=== PATIENT | female | born 1990 | race Caucasian/White ===

== ENCOUNTER 2017-12-07 22:59 | Emergency (ER) | payer MEDICAID ==
[~2017-12-07] VITALS: Ht 154.9 cm; Wt 120.7 kg
[~2017-12-07 22:59] MED LIST: AMIT25TA10 PO; AZIT250T PO; AZIT250T82 PO; CYCL-1 PO; DICL50TA8 PO; DIPH1TAB PO; DOCU-28 PO; FLUT16SP2 BOTHNARES; FLUT16SP26 BOTHNARES; GABA-532 PO; GUAI120015 PO; IBUP-1985 PO; LIDO5CRE7 RC; LOPE2CAP PO; LORA10TA7 PO; METH-360 PO; METR500T PO; OLAN10TA3 PO; ONDA4TAB6 PO; OXCA300T4 PO; PROC5TAB56 PO; PROM25TA14 PO; TRAM50TA2 PO
[2017-12-08] MEDS ORDERED: HYDR-3965 PO (01:29)
[2017-12-08] MEDS ORDERED: IBUP-1984 PO (01:29)
[2017-12-08] MEDS ORDERED: ondansetron/PF 4mg/2ml inj IM ONE (01:30)
[2017-12-08] MEDS ORDERED: ketorolac trometh inj. 60 MG/2 ML VIAL IM ONE (01:30)
[2017-12-08] MEDS ORDERED: morphine 4 MG/ML inj SYRINge IM ONE (01:30)
[2017-12-08 02:05] VITALS: BP 127/68
== END 2017-12-08 02:07 | disposition home or self-care (01) ==
LOC: ER 23:01
DX: M54.30 Sciatica, unspecified side (principal); G89.29 Other chronic pain; G43.909 Migraine, unspecified, not intractable, without status migrainosus; E03.9 Hypothyroidism, unspecified; F12.10 Cannabis abuse, uncomplicated; Z88.8 Allergy status to other drugs, medicaments and biological substances; Z91.030 Bee allergy status; Z79.899 Other long term (current) drug therapy
CPT/HCPCS: 96372; 99284; J1885; J2270; J2405

== ENCOUNTER 2018-02-27 17:36 | Emergency (ER) | payer MEDICAID ==
[~2018-02-27] VITALS: Ht 160 cm; Wt 120.0 kg
[2018-02-27 17:59] LABS: BASOPHILS # (AUTO) 0.1 X10'3 (0-0.2); BASOPHILS % (AUTO) 0.5 % (0-1); EOSINOPHILS # (AUTO) 0.2 X10'3 (0-0.9); HEMATOCRIT 40.6 % (35.0-45.0); HEMOGLOBIN 13.9 g/dl (12.0-16.0); LYMPHOCYTES # (AUTO) 2.9 X10'3 (1.1-4.8); LYMPHOCYTES % (AUTO) 17.5 % (21-51); MEAN CORPUSCULAR HEMOGLOBIN 30.5 PG (27.0-31.0); MEAN CORPUSCULAR HGB CONC 34.1 % (33.0-36.5); MEAN CORPUSCULAR VOLUME 89.4 FL (78-98); MEAN PLATELET VOLUME 11.1 FL (7.4-10.4); MONOCYTES # (AUTO) 0.6 X10'3 (0-0.9); MONOCYTES % (AUTO) 3.7 % (2-12); NEUTROPHILS # (AUTO) 12.8 X10'3 (1.8-7.7); NEUTROPHILS % (AUTO) 77.3 % (42-75); PLATELET COUNT 259 X10'3 (140-440); RED BLOOD COUNT 4.54 X10'6 (4.20-5.60); RED CELL DISTRIBUTION WIDTH 13.9 % (11.5-14.5); WHITE BLOOD COUNT 16.6 X10'3 (4.5-11.0)
[2018-02-27 18:11] LABS: PARTIAL THROMBOPLASTIN TIME 30 SECONDS (22-32)
[2018-02-27 18:16] LABS: ALANINE AMINOTRANSFERASE 23 U/L (12-78); ALBUMIN 3.7 G/DL (3.4-5.0); ALBUMIN/GLOBULIN RATIO 0.9 (1.1-1.5); ALKALINE PHOSPHATASE 104 IU/L (46-116); ANION GAP 11 (8-16); ASPARTATE AMINO TRANSFERASE 9 U/L (10-37); BILIRUBIN,TOTAL 0.3 MG/DL (0.1-1.0); BLOOD UREA NITROGEN 14 MG/DL (7-18); BUN/CREATININE RATIO 15.6 (6.6-38.0); CALCIUM 9.1 MG/DL (8.5-10.1); CHLORIDE 103 MMOL/L (99-107); GLUCOSE 104 MG/DL (70-104); POTASSIUM 3.3 MMOL/L (3.5-5.1); SODIUM 139 MMOL/L (135-145); TOTAL PROTEIN 7.9 G/DL (6.4-8.2); eGFR 75 ML/MIN
[2018-02-27 18:39] LABS: LARGE PLATELETS FEW; PLATELET ESTIMATE NORMAL
[2018-02-27 21:14] LABS: URINE HCG NEGATIVE (NEG)
[2018-02-27 21:16] LABS: CLARITY,URINE CLEAR (Clear); COLOR,URINE YELLOW (Yellow); GLUCOSE, URINE NEGATIVE (Neg); KETONES,URINE TRACE mg/dl (Neg); LEUKOCYTE ESTERASE ,URINE NEGATIVE (Neg); NITRITES, URINE NEGATIVE (Neg); OCCULT BLOOD,URINE NEGATIVE (Neg); PH,URINE 5.5 (4.8-8.0); PROTEIN,URINE NEGATIVE (Neg); UROBILINOGEN,URINE 0.2 E.U/dL (0.2-1.0)
[2018-02-27 21:17] LABS: UA COLLECTION TYPE CLN CATCH MIDSTREAM
[2018-02-27] MEDS ORDERED: ketorolac tromethamine 15mg/ml inj. IV ONE (21:25)
[2018-02-27] MEDS ORDERED: cyclobenzaprine 10mg tablet PO ONE (21:25)
[2018-02-27] MEDS ORDERED: HYDROcodone/acetaminophen 5mg/325mg tablet PO ONE (21:25)
[2018-02-27] MEDS ORDERED: CYCL-1 PO (21:31)
[2018-02-27] MEDS ORDERED: IBUP-1986 PO (21:31)
[2018-02-27 21:46] VITALS: BP 113/76
== END 2018-02-27 22:01 | disposition home or self-care (01) ==
LOC: ER 17:36
DX: R07.9 Chest pain, unspecified (principal); G43.909 Migraine, unspecified, not intractable, without status migrainosus; G89.29 Other chronic pain; F12.90 Cannabis use, unspecified, uncomplicated; F31.9 Bipolar disorder, unspecified; F17.200 Nicotine dependence, unspecified, uncomplicated; Z56.0 Unemployment, unspecified; Z91.030 Bee allergy status; Z79.899 Other long term (current) drug therapy; Z79.2 Long term (current) use of antibiotics
CPT/HCPCS: 36415; 71045; 80053; 81003; 81025; 84484; 85025; 85610; 85730; 93005; 96374; 99285; J1885

== ENCOUNTER 2018-06-12 20:54 | Emergency (ER) | payer MEDICAID ==
[~2018-06-12] VITALS: Ht 157.5 cm; Wt 105.0 kg
[~2018-06-12 20:54] MED LIST changes: +IBUP-1986 PO
[2018-06-12 20:57] VITALS: BP 134/82
[2018-06-12] MEDS ORDERED: BENZ-16 PO (21:38)
[2018-06-12] MEDS ORDERED: AZIT250T PO (21:38)
== END 2018-06-12 21:43 | disposition home or self-care (01) ==
LOC: ER 20:56
DX: J20.9 Acute bronchitis, unspecified (principal); G43.909 Migraine, unspecified, not intractable, without status migrainosus; J45.909 Unspecified asthma, uncomplicated; E03.9 Hypothyroidism, unspecified; G89.29 Other chronic pain; F12.90 Cannabis use, unspecified, uncomplicated; F17.200 Nicotine dependence, unspecified, uncomplicated; Z56.0 Unemployment, unspecified; Z88.8 Allergy status to other drugs, medicaments and biological substances; Z91.030 Bee allergy status; Z79.899 Other long term (current) drug therapy
CPT/HCPCS: 99283

== ENCOUNTER 2019-01-04 21:38 | Emergency (ER) | payer MEDICAID ==
[~2019-01-04] VITALS: Ht 157.5 cm; Wt 117.0 kg
[~2019-01-04 21:38] MED LIST changes: +BENZ-16 PO
[2019-01-04 22:41] LABS: BASOPHILS # (AUTO) 0.1 X10'3 (0-0.2); EOSINOPHILS # (AUTO) 0.2 X10'3 (0-0.9); EOSINOPHILS % (AUTO) 1.6 % (0-6); HEMOGLOBIN 13.6 g/dl (12.0-16.0); LYMPHOCYTES % (AUTO) 35.9 % (21-51); MEAN CORPUSCULAR HEMOGLOBIN 30.3 PG (27.0-31.0); MEAN CORPUSCULAR HGB CONC 33.1 g/dL (33.0-36.5); MEAN CORPUSCULAR VOLUME 91.4 FL (78-98); MEAN PLATELET VOLUME 10.7 FL (7.4-10.4); MONOCYTES # (AUTO) 0.7 X10'3 (0-0.9); MONOCYTES % (AUTO) 6.1 % (2-12); NEUTROPHILS # (AUTO) 6.1 X10'3 (1.8-7.7); NEUTROPHILS % (AUTO) 55.4 % (42-75); PLATELET COUNT 307 X10'3 (140-440); RED BLOOD COUNT 4.48 X10'6 (4.20-5.60); RED CELL DISTRIBUTION WIDTH 13.2 % (11.5-14.5)
[2019-01-04 22:51] LABS: ALANINE AMINOTRANSFERASE 82 U/L (12-78); ALBUMIN 3.5 G/DL (3.4-5.0); ALBUMIN/GLOBULIN RATIO 0.9 (1.1-1.5); ALKALINE PHOSPHATASE 120 IU/L (46-116); ANION GAP 9 (8-16); ASPARTATE AMINO TRANSFERASE 22 U/L (10-37); BILIRUBIN,TOTAL 0.1 MG/DL (0.1-1.0); BLOOD UREA NITROGEN 13 MG/DL (7-18); BUN/CREATININE RATIO 17.3 (6.6-38.0); CALCIUM 8.5 MG/DL (8.5-10.1); CHLORIDE 106 MMOL/L (99-107); CREATININE 0.75 MG/DL (0.40-0.90); GLUCOSE 91 MG/DL (70-104); POTASSIUM 3.3 MMOL/L (3.5-5.1); SODIUM 137 MMOL/L (135-145); TOTAL CARBON DIOXIDE 22.4 MMOL/L (24-32); TOTAL PROTEIN 7.6 G/DL (6.4-8.2); eGFR > 90 ML/MIN
[2019-01-04] MEDS ORDERED: methylPREDNISolone sod succ 125mg/2ml vial IV ONE (23:40)
[2019-01-04] MEDS ORDERED: ketorolac tromethamine 15mg/ml inj. IV ONE (23:40)
[2019-01-04] MEDS ORDERED: DOXY100C2 PO (23:43)
[2019-01-04] MEDS ORDERED: GUAI237S46 PO (23:43)
[2019-01-04] MEDS ORDERED: PRED20TA PO (23:43)
[2019-01-04 23:58] VITALS: BP 114/64
== END 2019-01-05 00:01 | disposition home or self-care (01) ==
LOC: ER 21:38
DX: J20.9 Acute bronchitis, unspecified (principal); G43.909 Migraine, unspecified, not intractable, without status migrainosus; J45.909 Unspecified asthma, uncomplicated; E03.9 Hypothyroidism, unspecified; G89.29 Other chronic pain; F12.90 Cannabis use, unspecified, uncomplicated; Z91.030 Bee allergy status; Z88.8 Allergy status to other drugs, medicaments and biological substances; Z79.899 Other long term (current) drug therapy; Z56.0 Unemployment, unspecified
CPT/HCPCS: 36415; 71046; 80053; 83605; 85025; 87040; 93005; 96374; 96375; 99284; J1885; J2930

== ENCOUNTER 2019-03-09 20:27 | Emergency (ER) | payer MEDICAID ==
[~2019-03-09] VITALS: Ht 157.5 cm; Wt 118.6 kg
[2019-03-09 20:57] LABS: BASOPHILS % (AUTO) 0.3 % (0-1); EOSINOPHILS # (AUTO) 0.2 X10'3 (0-0.9); EOSINOPHILS % (AUTO) 1.7 % (0-6); HEMATOCRIT 40.9 % (35.0-45.0); HEMOGLOBIN 13.6 g/dl (12.0-16.0); LYMPHOCYTES # (AUTO) 3.7 X10'3 (1.1-4.8); LYMPHOCYTES % (AUTO) 28.7 % (21-51); MEAN CORPUSCULAR HGB CONC 33.3 g/dL (33.0-36.5); MEAN CORPUSCULAR VOLUME 92.9 FL (78-98); MONOCYTES % (AUTO) 7.5 % (2-12); NEUTROPHILS % (AUTO) 61.8 % (42-75); PLATELET COUNT 277 X10'3 (140-440); RED BLOOD COUNT 4.41 X10'6 (4.20-5.60); RED CELL DISTRIBUTION WIDTH 13.4 % (11.5-14.5)
[2019-03-09 21:10] LABS: PARTIAL THROMBOPLASTIN TIME 34 SECONDS (22-32)
[2019-03-09 21:11] LABS: ALANINE AMINOTRANSFERASE 34 U/L (12-78); ALBUMIN 3.4 G/DL (3.4-5.0); ALBUMIN/GLOBULIN RATIO 0.9 (1.1-1.5); ALKALINE PHOSPHATASE 93 IU/L (46-116); ANION GAP 9 (8-16); ASPARTATE AMINO TRANSFERASE 10 U/L (10-37); BILIRUBIN,TOTAL 0.1 MG/DL (0.1-1.0); BLOOD UREA NITROGEN 17 MG/DL (7-18); BUN/CREATININE RATIO 20.7 (6.6-38.0); CALCIUM 8.2 MG/DL (8.5-10.1); CHLORIDE 107 MMOL/L (99-107); CREATININE 0.82 MG/DL (0.40-0.90); GLUCOSE 102 MG/DL (70-104); POTASSIUM 3.5 MMOL/L (3.5-5.1); SODIUM 139 MMOL/L (135-145); TOTAL CARBON DIOXIDE 23.2 MMOL/L (24-32); TOTAL PROTEIN 7.1 G/DL (6.4-8.2); eGFR 83 ML/MIN
[2019-03-09] MEDS ORDERED: ketorolac trometh. 30mg/ml inj. IV ONE (21:25)
[2019-03-09 21:34] VITALS: BP 123/77
[2019-03-09 23:16] LABS: LARGE PLATELETS MODERATE; PLATELET ESTIMATE NORMAL
== END 2019-03-09 21:38 | disposition home or self-care (01) ==
LOC: ER 20:28
DX: R07.89 Other chest pain (principal); R20.0 Anesthesia of skin; R20.2 Paresthesia of skin; G43.909 Migraine, unspecified, not intractable, without status migrainosus; J45.909 Unspecified asthma, uncomplicated; E03.9 Hypothyroidism, unspecified; G89.29 Other chronic pain; F41.9 Anxiety disorder, unspecified; F31.9 Bipolar disorder, unspecified; F12.90 Cannabis use, unspecified, uncomplicated; Z98.890 Other specified postprocedural states; Z56.0 Unemployment, unspecified; Z88.8 Allergy status to other drugs, medicaments and biological substances; Z91.030 Bee allergy status; Z79.899 Other long term (current) drug therapy
CPT/HCPCS: 36415; 71045; 80053; 84484; 85025; 85610; 85730; 93005; 96374; 99284; J1885

== ENCOUNTER 2019-10-04 15:53 | Emergency (ER) | payer MEDICAID ==
[~2019-10-04] VITALS: Ht 157.5 cm; Wt 123.0 kg
[2019-10-04 15:57] VITALS: BP 140/88
[2019-10-04] MEDS ORDERED: traMADol 50MG tablet PO ONE (16:35)
[2019-10-04] MEDS ORDERED: ketorolac trometh. 30mg/ml inj. IM STA (16:35)
== END 2019-10-04 17:29 | disposition home or self-care (01) ==
LOC: ER 15:53
DX: S43.402A Unspecified sprain of left shoulder joint, initial encounter (principal); G43.909 Migraine, unspecified, not intractable, without status migrainosus; J45.909 Unspecified asthma, uncomplicated; E03.9 Hypothyroidism, unspecified; G89.29 Other chronic pain; F12.90 Cannabis use, unspecified, uncomplicated; Z56.0 Unemployment, unspecified; Z88.8 Allergy status to other drugs, medicaments and biological substances; Z79.2 Long term (current) use of antibiotics; Z79.899 Other long term (current) drug therapy; X50.1XXA Overexertion from prolonged static or awkward postures, initial encounter; Y93.89 Activity, other specified; Y92.89 Other specified places as the place of occurrence of the external cause; Y99.9 Unspecified external cause status
CPT/HCPCS: 73030; 96372; 99283; J1885

== ENCOUNTER 2020-06-03 17:59 | Emergency (ER) | payer MEDICAID ==
[~2020-06-03] VITALS: Ht 157.5 cm; Wt 116.4 kg
[2020-06-03 18:36] LABS: CLARITY,URINE CLEAR (Clear); COLOR,URINE YELLOW (Yellow); GLUCOSE, URINE NEGATIVE (Neg); KETONES,URINE NEGATIVE (Neg); LEUKOCYTE ESTERASE ,URINE NEGATIVE (Neg); NITRITES, URINE NEGATIVE (Neg); OCCULT BLOOD,URINE NEGATIVE (Neg); PH,URINE 5.5 (4.8-8.0); PROTEIN,URINE NEGATIVE (Neg); UROBILINOGEN,URINE 0.2 E.U/dL (0.2-1.0)
[2020-06-03 18:38] LABS: BASOPHILS # (AUTO) 0.1 X10'3 (0-0.2); BASOPHILS % (AUTO) 0.5 % (0-1); EOSINOPHILS # (AUTO) 0.2 X10'3 (0-0.9); EOSINOPHILS % (AUTO) 1.3 % (0-6); HEMATOCRIT 41.4 % (35.0-45.0); HEMOGLOBIN 13.5 g/dl (12.0-16.0); LYMPHOCYTES # (AUTO) 3.5 X10'3 (1.1-4.8); LYMPHOCYTES % (AUTO) 31.3 % (21-51); MEAN CORPUSCULAR HEMOGLOBIN 30.4 PG (27.0-31.0); MEAN CORPUSCULAR HGB CONC 32.6 g/dL (33.0-36.5); MEAN CORPUSCULAR VOLUME 93.3 FL (78-98); MEAN PLATELET VOLUME 10.8 FL (7.4-10.4); MONOCYTES # (AUTO) 0.6 X10'3 (0-0.9); MONOCYTES % (AUTO) 5.4 % (2-12); NEUTROPHILS # (AUTO) 6.9 X10'3 (1.8-7.7); NEUTROPHILS % (AUTO) 61.5 % (42-75); PLATELET COUNT 309 X10'3 (140-440); RED BLOOD COUNT 4.44 X10'6 (4.20-5.60); RED CELL DISTRIBUTION WIDTH 13.1 % (11.5-14.5); WHITE BLOOD COUNT 11.2 X10'3 (4.5-11.0)
[2020-06-03 18:43] LABS: UA COLLECTION TYPE CLN CATCH MIDSTREAM
[2020-06-03 18:51] LABS: ALANINE AMINOTRANSFERASE 22 U/L (12-78); ALBUMIN 3.9 G/DL (3.4-5.0); ALKALINE PHOSPHATASE 91 IU/L (46-116); AMYLASE 22 U/L (25-115); ANION GAP 7 (8-16); ASPARTATE AMINO TRANSFERASE 12 U/L (10-37); BILIRUBIN,TOTAL 0.2 MG/DL (0.1-1.0); BLOOD UREA NITROGEN 13 MG/DL (7-18); CALCIUM 9.6 MG/DL (8.5-10.1); CHLORIDE 105 MMOL/L (99-107); CREATININE 0.93 MG/DL (0.40-0.90); GLUCOSE 95 MG/DL (70-104); LIPASE 53 U/L (73-393); POTASSIUM 3.3 MMOL/L (3.5-5.1); SODIUM 137 MMOL/L (135-145); TOTAL CARBON DIOXIDE 24.9 MMOL/L (24-32); TOTAL PROTEIN 7.7 G/DL (6.4-8.2); eGFR 71 ML/MIN
[2020-06-03] MEDS ORDERED: ondansetron 4mg rapidly disintigrating tab PO ONE (21:20)
[2020-06-03] MEDS ORDERED: HYDROcodone/acetaminophen 5mg/325mg tablet PO ONE (21:20)
--- NOTE | 2020-06-03 22:30 | NUR ---
US at bedside
[2020-06-03] MEDS ORDERED: LORazepam 1 MG tablet PO ONE (22:45)
[2020-06-03] MEDS ORDERED: ketorolac trometh. 30mg/ml inj. IM ONE (22:45)
[2020-06-03] MEDS ORDERED: proCHLORperazine 10 MG/2 ml inj IM ONE (22:45)
[2020-06-03 23:09] VITALS: BP 108/73
--- NOTE | 2020-06-03 23:25 | NUR ---
Assisted GINO Mc with a vaginal exam. Pt tolerated procedure well.
== END 2020-06-03 23:48 | disposition home or self-care (01) ==
LOC: ER 17:59
DX: R10.30 Lower abdominal pain, unspecified (principal); R11.2 Nausea with vomiting, unspecified; R19.7 Diarrhea, unspecified; G43.909 Migraine, unspecified, not intractable, without status migrainosus; J45.909 Unspecified asthma, uncomplicated; E03.9 Hypothyroidism, unspecified; G89.29 Other chronic pain; F41.9 Anxiety disorder, unspecified; F31.9 Bipolar disorder, unspecified; F12.90 Cannabis use, unspecified, uncomplicated; Z86.2 Personal history of diseases of the blood and blood-forming organs and certain disorders involving the immune mechanism; Z87.440 Personal history of urinary (tract) infections; Z98.890 Other specified postprocedural states; Z56.0 Unemployment, unspecified; Z88.8 Allergy status to other drugs, medicaments and biological substances; Z91.030 Bee allergy status; Z79.2 Long term (current) use of antibiotics; Z79.899 Other long term (current) drug therapy
CPT/HCPCS: 36415; 74176; 76830; 76856; 80053; 81003; 82150; 83690; 85025; 93976; 96372; 99285; J0780; J1885

== ENCOUNTER 2020-06-09 13:05 | Emergency (ER) | payer MEDICAID ==
[~2020-06-09] VITALS: Ht 157.5 cm; Wt 118.2 kg
[2020-06-09 16:16] LABS: BASOPHILS # (AUTO) 0.1 X10'3 (0-0.2); BASOPHILS % (AUTO) 0.5 % (0-1); EOSINOPHILS # (AUTO) 0.1 X10'3 (0-0.9); EOSINOPHILS % (AUTO) 1.3 % (0-6); HEMATOCRIT 37.6 % (35.0-45.0); HEMOGLOBIN 12.5 g/dl (12.0-16.0); LYMPHOCYTES # (AUTO) 2.7 X10'3 (1.1-4.8); LYMPHOCYTES % (AUTO) 25.8 % (21-51); MEAN CORPUSCULAR HEMOGLOBIN 30.8 PG (27.0-31.0); MEAN CORPUSCULAR HGB CONC 33.2 g/dL (33.0-36.5); MEAN CORPUSCULAR VOLUME 92.6 FL (78-98); MEAN PLATELET VOLUME 10.8 FL (7.4-10.4); MONOCYTES # (AUTO) 0.6 X10'3 (0-0.9); MONOCYTES % (AUTO) 5.6 % (2-12); NEUTROPHILS # (AUTO) 6.9 X10'3 (1.8-7.7); NEUTROPHILS % (AUTO) 66.8 % (42-75); PLATELET COUNT 258 X10'3 (140-440); RED BLOOD COUNT 4.06 X10'6 (4.20-5.60); RED CELL DISTRIBUTION WIDTH 13.1 % (11.5-14.5); WHITE BLOOD COUNT 10.3 X10'3 (4.5-11.0)
[2020-06-09 16:27] LABS: ALANINE AMINOTRANSFERASE 20 U/L (12-78); ALBUMIN 3.3 G/DL (3.4-5.0); ALKALINE PHOSPHATASE 78 IU/L (46-116); ANION GAP 11 (8-16); ASPARTATE AMINO TRANSFERASE 10 U/L (10-37); BILIRUBIN,TOTAL 0.2 MG/DL (0.1-1.0); BLOOD UREA NITROGEN 17 MG/DL (7-18); BUN/CREATININE RATIO 20.7 (6.6-38.0); CALCIUM 8.6 MG/DL (8.5-10.1); CHLORIDE 107 MMOL/L (99-107); CREATININE 0.82 MG/DL (0.40-0.90); GLUCOSE 89 MG/DL (70-104); POTASSIUM 3.5 MMOL/L (3.5-5.1); SODIUM 141 MMOL/L (135-145); TOTAL CARBON DIOXIDE 23.3 MMOL/L (24-32); TOTAL PROTEIN 6.7 G/DL (6.4-8.2); eGFR 82 ML/MIN
[2020-06-09 16:30] LABS: LARGE PLATELETS FEW; PLATELET ESTIMATE NORMAL
[2020-06-09] MEDS ORDERED: ketorolac tromethamine 15mg/ml inj. IV ONE (17:05)
[2020-06-09] MEDS ORDERED: ondansetron/PF 4mg/2ml inj IV ONE (17:05)
[2020-06-09] MEDS ORDERED: morphine 4 MG/ML inj SYRINge IV ONE (17:40)
[2020-06-09] MEDS ORDERED: HYDR-3965 PO (17:46)
[2020-06-09] MEDS ORDERED: ONDA4TAB6 PO (17:46)
[2020-06-09] MEDS ORDERED: FLO0.4C PO (17:46)
[2020-06-09] MEDS ORDERED: IBUP-1984 PO (17:46)
[2020-06-09 18:20] LABS: URINE HCG NEGATIVE (NEG)
[2020-06-09 18:31] VITALS: BP 125/83
== END 2020-06-09 18:34 | disposition home or self-care (01) ==
LOC: ER 13:05
DX: T83.89XA Other specified complication of genitourinary prosthetic devices, implants and grafts, initial encounter (principal); N20.0 Calculus of kidney; G43.909 Migraine, unspecified, not intractable, without status migrainosus; J45.909 Unspecified asthma, uncomplicated; E03.9 Hypothyroidism, unspecified; G89.29 Other chronic pain; F41.9 Anxiety disorder, unspecified; F31.9 Bipolar disorder, unspecified; F12.90 Cannabis use, unspecified, uncomplicated; Z86.2 Personal history of diseases of the blood and blood-forming organs and certain disorders involving the immune mechanism; Z56.0 Unemployment, unspecified; Z88.8 Allergy status to other drugs, medicaments and biological substances; Z91.030 Bee allergy status; Z79.899 Other long term (current) drug therapy; Y83.8 Other surgical procedures as the cause of abnormal reaction of the patient, or of later complication, without mention of misadventure at the time of the procedure; Y92.89 Other specified places as the place of occurrence of the external cause
CPT/HCPCS: 36415; 80053; 81025; 83605; 84145; 85025; 87040; 96374; 96375; 99285; J1885; J2270; J2405

== ENCOUNTER 2020-10-05 05:28 | Day surgery (SDC) | payer MEDICAID ==
[2020-09-28 11:29] LABS: BASOPHILS % (AUTO) 0.4 % (0-1); EOSINOPHILS # (AUTO) 0.1 X10'3 (0-0.9); EOSINOPHILS % (AUTO) 1.5 % (0-6); LYMPHOCYTES # (AUTO) 2.4 X10'3 (1.1-4.8); MEAN CORPUSCULAR HEMOGLOBIN 30.9 PG (27.0-31.0); MEAN CORPUSCULAR HGB CONC 33.5 g/dL (33.0-36.5); MEAN CORPUSCULAR VOLUME 92.2 FL (78-98); MONOCYTES # (AUTO) 0.5 X10'3 (0-0.9); MONOCYTES % (AUTO) 5.9 % (2-12); NEUTROPHILS # (AUTO) 5.6 X10'3 (1.8-7.7); NEUTROPHILS % (AUTO) 64.2 % (42-75); PRE OP HEMATOCRIT 40.7 % (35.0-45.0); PRE OP HEMOGLOBIN 13.6 g/dL (12.0-16.0); PRE OP PLATELET COUNT 308 X10'3 (140-440); RED BLOOD COUNT 4.41 X10'6 (4.20-5.60)
[2020-09-28 11:39] LABS: ALBUMIN 3.7 G/DL (3.4-5.0); ALBUMIN/GLOBULIN RATIO 0.9 (1.1-1.5); ALKALINE PHOSPHATASE 107 IU/L (46-116); BLOOD UREA NITROGEN 14 MG/DL (7-18); BUN/CREATININE RATIO 19.4 (6.6-38.0); CALCIUM 8.8 MG/DL (8.5-10.1); CHLORIDE 104 MMOL/L (99-107); CREATININE 0.72 MG/DL (0.40-0.90); PRE OP ALT 21 U/L (30-65); PRE OP ANION GAP 8 (8-16); PRE OP AST 11 U/L (10-37); PRE OP BILIRUB, TOTAL 0.2 MG/DL (0.0-1.0); PRE OP GLUCOSE 97 MG/DL (70-104); PRE OP POTASSIUM 4.1 MMOL/L (3.4-5.1); PRE OP SODIUM 137 MMOL/L (135-145); TOTAL CARBON DIOXIDE 24.9 MMOL/L (24-32); TOTAL PROTEIN 7.9 G/DL (6.4-8.2); eGFR > 90 ML/MIN
[2020-09-28 12:07] LABS: HCG SERUM QL NEGATIVE
[~2020-10-05] VITALS: Ht 157.5 cm; Wt 122.9 kg
[2020-10-05] VITALS (7 sets, daily range): BP systolic 126–145; BP diastolic 72–96
[~2020-10-05 05:28] MED LIST changes: -AMIT25TA10 PO; +ATRIN INH; -AZIT250T PO; -AZIT250T82 PO; -BENZ-16 PO; +BUPR-286 PO; +BUPR300T86 PO; -CYCL-1 PO; +CYCL10TA26 PO; -DICL50TA8 PO; -DIPH1TAB PO; +DOCU-22 PO; -DOCU-28 PO; -FLUT16SP2 BOTHNARES; -FLUT16SP26 BOTHNARES; -GABA-532 PO; -GUAI120015 PO; -IBUP-1985 PO; +KEN0.1O TOP; +KETO15CR2 TOP; -LIDO5CRE7 RC; -LOPE2CAP PO; +LORA-268 PO; -METH-360 PO; -METR500T PO; -OLAN10TA3 PO; -ONDA4TAB6 PO; -OXCA300T4 PO; -PROC5TAB56 PO; +PROM12.512 PO; -PROM25TA14 PO; +SUMA100T16 PO; +TOP100T PO; -TRAM50TA2 PO; +TRAZ-251 PO; +ringers solution, lacted 1,000 ML IV SCH
[2020-10-05] MEDS ORDERED: ceFAZolin 2gm in dextrose, iso 50 ML IV ONE (05:30)
[2020-10-05] MEDS ORDERED: famotidine 20mg tablet PO ONE (05:30)
[2020-10-05] MEDS ORDERED: albuterol 2.5 MG/3 ML nebule NEB ONE (05:30)
[2020-10-05] MEDS ORDERED: cloNIDine hcl/PF 100mcg/ml inj ONE (06:57)
[2020-10-05] MEDS ORDERED: fentaNYL/PF 50MCG/1 ML 2ML syringe ONE (07:01)
[2020-10-05] MEDS ORDERED: midazolam 2 mg/2 ml injection ONE (07:01)
[2020-10-05] MEDS ORDERED: ROPIVAcaine 0.5% (5mg/ml) 30ml vial ONE ×2 (07:04→07:19)
[2020-10-05] MEDS ORDERED: dexamethasone sod phosphate 4mg/ml inj. ONE (07:25)
[2020-10-05] MEDS ORDERED: propofol inj 20 ML IV ONE (07:25)
[2020-10-05] MEDS ORDERED: ondansetron/PF 4mg/2ml inj ONE (07:36)
--- NOTE | 2020-10-05 07:57 | NUR ---
PATIENT ARRIVED TO RECOVERY VIA BED WITH DR LANIER. PATIENT A&OX4, DENIES PAIN, V/S WNL, NEUROVASCULAR CHECKS INTACT, 20G PIV RIGHT AC, DRESSING TO LEFT SHOULDER, arm in sling palpable radial pulses, CDI W/ ICE PACK.
[2020-10-05] MEDS ORDERED: HYDROcodone/acetaminophen 10/325mg tab PO PRN (08:00)
[2020-10-05] MEDS ORDERED: morphine 4 MG/ML inj SYRINge IV PRN (08:05)
[2020-10-05] MEDS ORDERED: meperidine/PF 25mg/ml syringe IV PRN ×3 (08:05)
[2020-10-05] MEDS ORDERED: ringers solution, lacted 1,000 ML IV SCH (08:05)
[2020-10-05] MEDS ORDERED: ondansetron/PF 4mg/2ml inj IV PRN (08:05)
[2020-10-05] MEDS ORDERED: morphine 2 MG/ML inj. syringe IV PRN (08:05)
[2020-10-05] MEDS ORDERED: proCHLORperazine 10 MG/2 ml inj IV PRN (08:05)
--- NOTE | 2020-10-05 09:07 | NUR ---
Pt discharged to vehicle by wheelchair after IV dc'd without incident, to receive. Dressing remains CDI and fingers remain immobile and numb. No pain at this time. All belongings returned to patient. Sling on and education provided, pt and (on phone) received and verbalized understanding of all DC instructions. Will be picking up pain meds at pharmacy on way home. Received extensive education on respiratory care and use of IS post op at home at least once an hour.
== END 2020-10-05 09:07 | disposition home or self-care (01) ==
LOC: PAS 05:28
PROVIDERS: ATTEND Orthopaedic Surgery
DX: M75.42 Impingement syndrome of left shoulder (principal); M75.52 Bursitis of left shoulder; Z20.822 Contact with and (suspected) exposure to COVID-19; G89.18 Other acute postprocedural pain; F17.210 Nicotine dependence, cigarettes, uncomplicated; J45.909 Unspecified asthma, uncomplicated; Z88.8 Allergy status to other drugs, medicaments and biological substances; G43.909 Migraine, unspecified, not intractable, without status migrainosus; F41.9 Anxiety disorder, unspecified; Z87.442 Personal history of urinary calculi; Z87.440 Personal history of urinary (tract) infections; Z91.030 Bee allergy status; Z91.018 Allergy to other foods; Z01.810 Encounter for preprocedural cardiovascular examination
CPT/HCPCS: 29823; 29826; 36415; 64415; 80053; 82948; 84703; 85025; 87635; 93005; J0735; J1100; J2250; J2405; J2704; J3010; J7120; A4565; A4618; A6449; A7000; J2795

== ENCOUNTER 2021-04-21 22:45 | Emergency (ER) | payer MEDICAID ==
[~2021-04-21] VITALS: Ht 157.5 cm; Wt 123.0 kg
[~2021-04-21 22:45] MED LIST changes: -BUPR-286 PO; +BUPR-317 PO; -ringers solution, lacted 1,000 ML IV SCH
[2021-04-21 23:11] VITALS: BP 129/80
[2021-04-21] MEDS ORDERED: PRED20TA PO (23:27)
== END 2021-04-21 23:45 | disposition home or self-care (01) ==
LOC: ER 22:47
DX: R06.02 Shortness of breath (principal); F41.9 Anxiety disorder, unspecified; G43.909 Migraine, unspecified, not intractable, without status migrainosus; J45.909 Unspecified asthma, uncomplicated; E03.9 Hypothyroidism, unspecified; G89.29 Other chronic pain; F31.9 Bipolar disorder, unspecified; F12.90 Cannabis use, unspecified, uncomplicated; Z86.2 Personal history of diseases of the blood and blood-forming organs and certain disorders involving the immune mechanism; Z87.440 Personal history of urinary (tract) infections; Z98.890 Other specified postprocedural states; Z56.0 Unemployment, unspecified; Z88.8 Allergy status to other drugs, medicaments and biological substances; Z91.030 Bee allergy status; Z91.018 Allergy to other foods; Z79.899 Other long term (current) drug therapy
CPT/HCPCS: 71045; 93005; 99283

== ENCOUNTER 2022-03-11 13:26 | Emergency (ER) | payer MEDICAID ==
[~2022-03-11] VITALS: Ht 154.9 cm; Wt 136.4 kg
[2022-03-11 14:29] VITALS: BP 147/96
== END 2022-03-11 17:49 | disposition home or self-care (01) ==
LOC: ER 13:27
DX: M79.672 Pain in left foot (principal); G43.909 Migraine, unspecified, not intractable, without status migrainosus; J45.909 Unspecified asthma, uncomplicated; G89.29 Other chronic pain; M54.50 Low back pain, unspecified; E03.9 Hypothyroidism, unspecified; F31.9 Bipolar disorder, unspecified; F12.90 Cannabis use, unspecified, uncomplicated; Z88.8 Allergy status to other drugs, medicaments and biological substances; Z88.6 Allergy status to analgesic agent; Z91.030 Bee allergy status; Z91.018 Allergy to other foods; Z56.0 Unemployment, unspecified
CPT/HCPCS: 73630; 99283; L3260

== ENCOUNTER 2022-05-07 13:38 | Emergency (ER) | payer MEDICAID, OTHER ==
[~2022-05-07] VITALS: Ht 154.9 cm; Wt 131.4 kg
[2022-05-07 14:14] VITALS: BP 134/103
[2022-05-07] MEDS ORDERED: ketorolac trometh. 30mg/ml inj. IM ONE (17:00)
== END 2022-05-07 17:27 | disposition home or self-care (01) ==
LOC: ER 13:39
DX: S90.32XA Contusion of left foot, initial encounter (principal); M79.672 Pain in left foot; G43.909 Migraine, unspecified, not intractable, without status migrainosus; J45.909 Unspecified asthma, uncomplicated; E03.9 Hypothyroidism, unspecified; G89.29 Other chronic pain; F41.9 Anxiety disorder, unspecified; F31.9 Bipolar disorder, unspecified; F12.90 Cannabis use, unspecified, uncomplicated; F17.210 Nicotine dependence, cigarettes, uncomplicated; Z86.2 Personal history of diseases of the blood and blood-forming organs and certain disorders involving the immune mechanism; Z87.440 Personal history of urinary (tract) infections; Z98.890 Other specified postprocedural states; Z56.0 Unemployment, unspecified; Z88.1 Allergy status to other antibiotic agents; Z91.030 Bee allergy status; Z91.018 Allergy to other foods; Z79.899 Other long term (current) drug therapy; W19.XXXA Unspecified fall, initial encounter; Y93.89 Activity, other specified; Y92.89 Other specified places as the place of occurrence of the external cause; Y99.8 Other external cause status
CPT/HCPCS: 73630; 96372; 99284; J1885; L3260

== ENCOUNTER 2023-02-18 21:45 | Emergency (ER) | payer MEDICAID ==
[~2023-02-18] VITALS: Ht 157.5 cm; Wt 125.0 kg
[2023-02-18 21:59] VITALS: BP 140/90
[2023-02-18 22:27] LABS: BASOPHILS % (AUTO) 0.3 % (0-1); EOSINOPHILS # (AUTO) 0.3 X10'3 (0-0.9); EOSINOPHILS % (AUTO) 1.9 % (0-6); HEMATOCRIT 37.7 % (35.0-45.0); HEMOGLOBIN 12.6 g/dl (12.0-16.0); LYMPHOCYTES # (AUTO) 4.4 X10'3 (1.1-4.8); LYMPHOCYTES % (AUTO) 26.5 % (21-51); MEAN CORPUSCULAR HEMOGLOBIN 29.6 PG (27.0-31.0); MEAN CORPUSCULAR HGB CONC 33.5 g/dL (33.0-36.5); MEAN CORPUSCULAR VOLUME 88.3 FL (78-98); MEAN PLATELET VOLUME 10.6 FL (7.4-10.4); NEUTROPHILS # (AUTO) 10.8 X10'3 (1.8-7.7); NEUTROPHILS % (AUTO) 65.3 % (42-75); PLATELET COUNT 288 X10'3 (140-440); RED BLOOD COUNT 4.27 X10'6 (4.20-5.60); RED CELL DISTRIBUTION WIDTH 14.4 % (11.5-14.5); WHITE BLOOD COUNT 16.5 X10'3 (4.5-11.0)
[2023-02-18 22:39] LABS: ALANINE AMINOTRANSFERASE 27 U/L (12-78); ALBUMIN 3.6 G/DL (3.4-5.0); ALBUMIN/GLOBULIN RATIO 0.9 (1.1-1.5); ALKALINE PHOSPHATASE 129 IU/L (46-116); ANION GAP 14 (8-16); ASPARTATE AMINO TRANSFERASE 12 U/L (10-37); BILIRUBIN,TOTAL 0.2 MG/DL (0.1-1.0); BLOOD UREA NITROGEN 22 MG/DL (7-18); BUN/CREATININE RATIO 15.3 (10.0-20.0); CALCIUM 9.2 MG/DL (8.5-10.1); CHLORIDE 103 MMOL/L (99-107); CREATININE 1.44 MG/DL (0.40-0.90); GLUCOSE 82 MG/DL (70-104); POTASSIUM 3.4 MMOL/L (3.5-5.1); SODIUM 141 MMOL/L (135-145); TOTAL CARBON DIOXIDE 24.2 MMOL/L (24-32); TOTAL PROTEIN 7.4 G/DL (6.4-8.2); eGFR 42 ML/MIN
[2023-02-18 23:17] LABS: LARGE PLATELETS FEW; PLATELET ESTIMATE NORMAL
[2023-02-19] MEDS ORDERED: albuterol 2.5 MG/3 ML nebule NEB ONE (00:05)
[2023-02-19] MEDS ORDERED: azithromycin 250mg tablet PO ONE (00:05)
[2023-02-19] MEDS ORDERED: predniSONE 20 mg tablet PO ONE (00:05)
[2023-02-19] MEDS ORDERED: PRED20TA PO (00:08)
[2023-02-19] MEDS ORDERED: AZIT250T2 PO (00:08)
== END 2023-02-19 01:12 | disposition home or self-care (01) ==
LOC: ER 21:46
DX: J20.9 Acute bronchitis, unspecified (principal); R07.89 Other chest pain; R06.02 Shortness of breath; R22.43 Localized swelling, mass and lump, lower limb, bilateral; G43.909 Migraine, unspecified, not intractable, without status migrainosus; J45.909 Unspecified asthma, uncomplicated; E03.9 Hypothyroidism, unspecified; G89.29 Other chronic pain; F12.90 Cannabis use, unspecified, uncomplicated; F17.210 Nicotine dependence, cigarettes, uncomplicated; Z56.0 Unemployment, unspecified; Z90.89 Acquired absence of other organs; Z79.899 Other long term (current) drug therapy; Z79.2 Long term (current) use of antibiotics; Z88.8 Allergy status to other drugs, medicaments and biological substances; Z88.1 Allergy status to other antibiotic agents; Z91.030 Bee allergy status; Z91.048 Other nonmedicinal substance allergy status; Z87.01 Personal history of pneumonia (recurrent)
CPT/HCPCS: 36415; 71045; 80053; 83880; 84484; 85008; 85025; 93005; 94640; 99285; J7512; 94760

== ENCOUNTER 2023-03-09 21:17 | Emergency (ER) | payer MEDICAID ==
[~2023-03-09] VITALS: Ht 157.5 cm; Wt 125.5 kg
[~2023-03-09 21:17] MED LIST changes: +PRED20TA PO
[2023-03-09 22:35] LABS: BASOPHILS # (AUTO) 0.1 X10'3 (0-0.2); BASOPHILS % (AUTO) 0.8 % (0-1); EOSINOPHILS # (AUTO) 0.1 X10'3 (0-0.9); EOSINOPHILS % (AUTO) 1.3 % (0-6); HEMATOCRIT 42.4 % (35.0-45.0); HEMOGLOBIN 14.2 g/dl (12.0-16.0); LYMPHOCYTES # (AUTO) 3.9 X10'3 (1.1-4.8); LYMPHOCYTES % (AUTO) 33.9 % (21-51); MEAN CORPUSCULAR HEMOGLOBIN 29.2 PG (27.0-31.0); MEAN CORPUSCULAR HGB CONC 33.5 g/dL (33.0-36.5); MEAN CORPUSCULAR VOLUME 87.1 FL (78-98); MEAN PLATELET VOLUME 10.8 FL (7.4-10.4); MONOCYTES % (AUTO) 8.6 % (2-12); NEUTROPHILS # (AUTO) 6.3 X10'3 (1.8-7.7); NEUTROPHILS % (AUTO) 55.4 % (42-75); PLATELET COUNT 348 X10'3 (140-440); RED BLOOD COUNT 4.87 X10'6 (4.20-5.60); WHITE BLOOD COUNT 11.4 X10'3 (4.5-11.0)
[2023-03-09 22:50] LABS: ALANINE AMINOTRANSFERASE 21 U/L (12-78); ALBUMIN 3.6 G/DL (3.4-5.0); ALBUMIN/GLOBULIN RATIO 0.8 (1.1-1.5); ALKALINE PHOSPHATASE 109 IU/L (46-116); ANION GAP 12 (8-16); ASPARTATE AMINO TRANSFERASE 13 U/L (10-37); BILIRUBIN,TOTAL 0.3 MG/DL (0.1-1.0); BLOOD UREA NITROGEN 19 MG/DL (7-18); BUN/CREATININE RATIO 20.2 (10.0-20.0); CALCIUM 9.4 MG/DL (8.5-10.1); CHLORIDE 104 MMOL/L (99-107); CREATININE 0.94 MG/DL (0.40-0.90); GLUCOSE 105 MG/DL (70-104); LIPASE < 50 U/L (73-393); SODIUM 142 MMOL/L (135-145); TOTAL CARBON DIOXIDE 26.2 MMOL/L (24-32); TOTAL PROTEIN 7.9 G/DL (6.4-8.2); eGFR 69 ML/MIN
[2023-03-09 23:12] LABS: POTASSIUM 2.6 MMOL/L (3.5-5.1)
--- NOTE | 2023-03-09 23:16 | NUR ---
DR GARCIA NOTIFIED OF LOW POTASSIUM. RECIEVED VERBAL ORDERS FOR ADD OF MAGNESIUM AND ETOH LAB LEVELS. LAB NOTIFIED OF ADD ON TESTS.
[2023-03-09 23:25] LABS: MAGNESIUM 2.4 MG/DL (1.5-2.4)
[2023-03-09 23:29] LABS: LARGE PLATELETS FEW; PLATELET ESTIMATE NORMAL
[2023-03-09 23:30] LABS: ETHANOL < 0.010 GM/DL (0.0-0.010)
[2023-03-10] MEDS ORDERED: normal saline 1000ML IV soln IVB ONE (01:40)
[2023-03-10] MEDS ORDERED: phenobarb/hyoscy/atropine/scop (Donnatal) 16.2mg tablet PO STA (01:40)
[2023-03-10] MEDS ORDERED: potassium Cl 20 mEq SR tablet PO ONE (01:45)
[2023-03-10] MEDS ORDERED: HYDROcodone/acetaminophen 10/325mg tab PO ONE (01:45)
[2023-03-10] MEDS ORDERED: dicyclomine 10 MG capsule PO ONE ×2 (02:15)
[2023-03-10 02:58] LABS: CLARITY,URINE SLIGHTLY CLOUDY (Clear); COLOR,URINE YELLOW (Yellow); GLUCOSE, URINE NEGATIVE (Neg); KETONES,URINE NEGATIVE (Neg); LEUKOCYTE ESTERASE ,URINE NEGATIVE (Neg); NITRITES, URINE NEGATIVE (Neg); OCCULT BLOOD,URINE MODERATE (Neg); PH,URINE 5.5 (4.8-8.0); PROTEIN,URINE TRACE mg/dl (Neg)
[2023-03-10 02:59] LABS: URINE HCG NEGATIVE (NEG)
[2023-03-10] MEDS ORDERED: predniSONE 20 mg tablet PO STA (03:07)
[2023-03-10] MEDS ORDERED: diphenhydrAMINE 50 mg/ml inj IV STA (03:07)
[2023-03-10 03:08] LABS: UA COLLECTION TYPE CLN CATCH MIDSTREAM
[2023-03-10 03:09] LABS: MUCUS STRANDS MANY /LPF (Neg); SQUAMOUS EPITHELIAL CELL,UR MANY /LPF (FEW)
[2023-03-10 03:10] LABS: BACTERIA,URINE 2+ /HPF (Neg); RBC,URINE 0-2 /HPF (0-2)
--- NOTE | 2023-03-10 03:10 | NUR ---
pt reported being itchy after taking bentyl, Dr. Matamoros notified & stated he was aware of pt reaction to bentyl as he had discussed with her prior to ordering. verbal orders for benadryl & prednisone given.
[2023-03-10 03:11] LABS: FINE GRANULAR CAST 0-3 /LPF (NEGATIVE); WBC,URINE 0-4 /HPF (0-4)
[2023-03-10 03:12] LABS: TRANSITIONAL EPI CELLS,URINE FEW /HPF
--- NOTE | 2023-03-10 03:32 | NUR ---
pt reports itching has gone away.
[2023-03-10 03:33] VITALS: BP 113/71
== END 2023-03-10 04:15 | disposition home or self-care (01) ==
LOC: ER 21:17
DX: E87.6 Hypokalemia (principal); R19.7 Diarrhea, unspecified; R10.12 Left upper quadrant pain; G43.909 Migraine, unspecified, not intractable, without status migrainosus; J45.909 Unspecified asthma, uncomplicated; E03.9 Hypothyroidism, unspecified; F31.9 Bipolar disorder, unspecified; F12.90 Cannabis use, unspecified, uncomplicated; Z91.018 Allergy to other foods; Z88.8 Allergy status to other drugs, medicaments and biological substances; Z88.1 Allergy status to other antibiotic agents; Z56.0 Unemployment, unspecified
CPT/HCPCS: 36415; 80053; 80320; 81001; 81025; 83690; 83735; 85008; 85025; 96361; 96374; 99284; J1200; J7030; J7512

== ENCOUNTER 2023-08-02 20:35 | Emergency (ER) | payer MEDICAID ==
[~2023-08-02] VITALS: Ht 157.5 cm; Wt 134.4 kg
[~2023-08-02 20:35] MED LIST changes: -PRED20TA PO
[2023-08-02 21:16] VITALS: BP 131/74; PULSE 81; RESP 16; TEMP 98; O2SAT 100
== END 2023-08-03 04:26 | disposition left against medical advice (07) ==
LOC: ER 20:36
DX: R51.9 Headache, unspecified (principal); Z53.21 Procedure and treatment not carried out due to patient leaving prior to being seen by health care provider
CPT/HCPCS: 70450; 72125; 99281

== ENCOUNTER 2023-09-05 17:48 | Emergency (ER) | payer OTHER ==
[~2023-09-05] VITALS: Ht 157.5 cm; Wt 130.8 kg
[2023-09-05] MEDS ORDERED: ketorolac trometh. 30mg/ml inj. IM ONE (18:50)
[2023-09-05] MEDS ORDERED: amox tr/potassium clavulanate 875/125mg TAB PO ONE (18:50)
[2023-09-05] MEDS ORDERED: oxyCODONE/APAP 5-325mg tablet PO ONE (18:50)
[2023-09-05] MEDS ORDERED: IBUP-1984 PO (18:53)
[2023-09-05] MEDS ORDERED: AMOX-580 PO (18:53)
[2023-09-05 19:14] VITALS: BP 134/89; PULSE 90; RESP 16; TEMP 98; O2SAT 100
== END 2023-09-05 19:17 | disposition home or self-care (01) ==
LOC: ER 17:48
DX: S20.102A Unspecified superficial injuries of breast, left breast, initial encounter (principal); G43.909 Migraine, unspecified, not intractable, without status migrainosus; J45.909 Unspecified asthma, uncomplicated; E03.9 Hypothyroidism, unspecified; F31.9 Bipolar disorder, unspecified; F12.90 Cannabis use, unspecified, uncomplicated; Z91.018 Allergy to other foods; Z88.8 Allergy status to other drugs, medicaments and biological substances; Z91.09 Other allergy status, other than to drugs and biological substances; Z88.1 Allergy status to other antibiotic agents; Z88.6 Allergy status to analgesic agent; Z79.2 Long term (current) use of antibiotics; Z79.899 Other long term (current) drug therapy; Z79.1 Long term (current) use of non-steroidal anti-inflammatories (NSAID); X58.XXXA Exposure to other specified factors, initial encounter; Y93.89 Activity, other specified; Y92.89 Other specified places as the place of occurrence of the external cause; Y99.8 Other external cause status
CPT/HCPCS: 96372; 99283; J1885

== ENCOUNTER 2024-05-13 22:30 | Emergency (ER) | payer BC, OTHER ==
[~2024-05-13] VITALS: Ht 157.5 cm; Wt 119.5 kg
[~2024-05-13 22:30] MED LIST changes: -BUPR-317 PO; +BUPR-561 PO; +BUPR-564 PO; -BUPR300T86 PO
[2024-05-13] MEDS: acetaminophen 325mg tablet PO ONE (23:23)
[2024-05-13] MEDS: ondansetron 4mg rapidly disintigrating tab PO ONE (23:23)
[2024-05-13] MEDS: ketorolac trometh 15mg/ml vial 15 MG/ML ML IM ONE (23:24)
[2024-05-13] MEDS ORDERED: ONDA-245 PO (23:57)
[2024-05-14 00:19] VITALS: BP 138/86; PULSE 84; RESP 18; TEMP 98.6; O2SAT 97
== END 2024-05-14 00:20 | disposition home or self-care (01) ==
LOC: ER 22:31
DX: U07.1 COVID-19 (principal); G43.909 Migraine, unspecified, not intractable, without status migrainosus; J45.909 Unspecified asthma, uncomplicated; E03.9 Hypothyroidism, unspecified; F41.9 Anxiety disorder, unspecified; F32.A Depression, unspecified; F12.90 Cannabis use, unspecified, uncomplicated; Z91.018 Allergy to other foods; Z79.899 Other long term (current) drug therapy; Z88.8 Allergy status to other drugs, medicaments and biological substances; Z88.1 Allergy status to other antibiotic agents; Z91.030 Bee allergy status; Z79.2 Long term (current) use of antibiotics
CPT/HCPCS: 93005; 96372; 99283; J1885

== ENCOUNTER 2024-07-17 16:44 | Emergency (ER) | payer BC, OTHER ==
[~2024-07-17] VITALS: Ht 157.5 cm; Wt 125.9 kg
[~2024-07-17 16:44] MED LIST changes: +ONDA-245 PO
[2024-07-17 16:51] VITALS: BP 137/72; PULSE 97; TEMP 97.6; O2SAT 100
[2024-07-17] MEDS ORDERED: LIDO700A32 TD (17:43)
[2024-07-17] MEDS: LIDOcaine 5% patch TP SCH (18:26)
[2024-07-17 18:37] VITALS: RESP 20
[2024-07-18] MEDS ORDERED: LIDOcaine 5% patch TP SCH (08:00)
== END 2024-07-17 19:04 | disposition home or self-care (01) ==
LOC: ER 16:45
DX: S93.602A Unspecified sprain of left foot, initial encounter (principal); G89.29 Other chronic pain; E03.9 Hypothyroidism, unspecified; F12.90 Cannabis use, unspecified, uncomplicated; F31.9 Bipolar disorder, unspecified; J45.909 Unspecified asthma, uncomplicated; Z91.018 Allergy to other foods; Z88.1 Allergy status to other antibiotic agents; Z88.3 Allergy status to other anti-infective agents; Z88.8 Allergy status to other drugs, medicaments and biological substances; Z91.030 Bee allergy status; Z87.440 Personal history of urinary (tract) infections; X58.XXXA Exposure to other specified factors, initial encounter; Y93.89 Activity, other specified; Y92.89 Other specified places as the place of occurrence of the external cause; Y99.8 Other external cause status
CPT/HCPCS: 73630; 99283; L4360

== ENCOUNTER 2024-10-08 11:54 | Emergency (ER) | payer BC, OTHER ==
[~2024-10-08] VITALS: Ht 157.5 cm; Wt 124.3 kg
[~2024-10-08 11:54] MED LIST changes: +LIDO700A32 TD
[2024-10-08 12:16] VITALS: BP 136/99; PULSE 79; RESP 18; TEMP 96.9; O2SAT 95
== END 2024-10-08 15:15 | disposition home or self-care (01) ==
LOC: ER 11:55
DX: S93.492A Sprain of other ligament of left ankle, initial encounter (principal); S00.83XA Contusion of other part of head, initial encounter; F31.9 Bipolar disorder, unspecified; E03.9 Hypothyroidism, unspecified; J45.909 Unspecified asthma, uncomplicated; G43.909 Migraine, unspecified, not intractable, without status migrainosus; F41.9 Anxiety disorder, unspecified; F17.210 Nicotine dependence, cigarettes, uncomplicated; Z91.010 Allergy to peanuts; Z91.030 Bee allergy status; Z88.1 Allergy status to other antibiotic agents; Z88.8 Allergy status to other drugs, medicaments and biological substances; F12.90 Cannabis use, unspecified, uncomplicated; W01.0XXA Fall on same level from slipping, tripping and stumbling without subsequent striking against object, initial encounter; Y93.89 Activity, other specified; Y92.89 Other specified places as the place of occurrence of the external cause; Y99.0 Civilian activity done for income or pay
CPT/HCPCS: 70486; 73610; 99284; L4360

== ENCOUNTER 2025-04-04 09:30 | Inpatient (IN) | payer MEDICAID ==
[2025-04-02 15:03] LABS: MEAN PLATELET VOLUME 11.0 FL (7.4-10.4); PRE OP HEMATOCRIT 41.2 % (35.0-45.0); PRE OP HEMOGLOBIN 13.8 g/dL (12.0-16.0); PRE OP PLATELET COUNT 306 X10'3 (140-440); PRE OP WHITE BLOOD COUNT 14.2 10'3 (4.8-10.8); RED CELL DISTRIBUTION WIDTH 13.8 % (11.5-14.5)
[2025-04-02 15:04] LABS: LEUKOCYTE ESTERASE ,URINE NEGATIVE (Neg); NITRITES, URINE NEGATIVE (Neg); OCCULT BLOOD,URINE NEGATIVE (Neg)
[2025-04-02 15:15] LABS: CREATININE 0.84 MG/DL (0.40-0.90); PRE OP ALT 25 U/L (30-65); PRE OP ANION GAP 8 (8-16); PRE OP AST 13 U/L (10-37); PRE OP BILIRUB, TOTAL 0.3 MG/DL (0.0-1.0); PRE OP GLUCOSE 94 MG/DL (70-104); PRE OP SODIUM 138 MMOL/L (135-145); TOTAL CARBON DIOXIDE 25.1 MMOL/L (24-32); eGFR 78 ML/MIN
[2025-04-02 15:19] LABS: PRE OP POTASSIUM 2.8 MMOL/L (3.4-5.1)
[2025-04-02 15:28] LABS: UA COLLECTION TYPE NON-SPECIFIED
[2025-04-02 15:38] LABS: PLATELET ESTIMATE NORMAL
[2025-04-02 15:40] LABS: LARGE PLATELETS MODERATE
[~2025-04-04] VITALS: Ht 157.5 cm; Wt 134.7 kg
[2025-04-04] MEDS: Cefazolin 3 GM/100ML NS IVPB 100 ML IV ONE (05:30)
[~2025-04-04 09:30] MED LIST changes: +ACET-812 PO; -ATRIN INH; -BUPR-561 PO; -BUPR-564 PO; +BUPR-726 PO; +BUPR300T53 PO; +CLON0.5T4 PO; -CYCL10TA26 PO; +DICL-212 PO; +DICL20GE TOP; -DOCU-22 PO; +HYDR-3964 PO; -IBUP-1986 PO; +IPRA3AMP31 NEB; -KEN0.1O TOP; -KETO15CR2 TOP; -LIDO700A32 TD; -LORA-268 PO; -LORA10TA7 PO; +METH-798 PO; -ONDA-245 PO; +PANT40TA54 PO; +PREG200C PO; -PROM12.512 PO; -SUMA100T16 PO; -TRAZ-251 PO; +ringers solution, lacted 1,000 ML IV SCH
[2025-04-07] VITALS (24 sets, daily range): BP systolic 91–125; BP diastolic 40–71; PULSE 66–101; RESP 12–23; TEMP 97.3–107; O2SAT 93–99
[2025-04-07] MEDS ORDERED: bacitracin 15gm ointment TP ONE (10:32)
[2025-04-07] MEDS ORDERED: BUPIVAcaine/PF 2.5mg/ml (0.25%) 10ml vial ONE (10:33)
[2025-04-07] MEDS ORDERED: MIDAZolam 1 MG/ML 5ML VIAL ONE (10:38)
[2025-04-07] MEDS ORDERED: fentaNYL /PF 50mcg/ml 5ml ampule ONE (10:39)
[2025-04-07] MEDS ORDERED: ROPIVAcaine 0.5% (5mg/ml) 30ml vial ONE (10:41)
[2025-04-07] MEDS ORDERED: cloNIDine hcl/PF 100mcg/ml inj ONE (10:43)
[2025-04-07 11:18] LABS: ISTAT ANION GAP 11.0 (8-12); ISTAT BUN 16.0 mg/dL (7-18); ISTAT CL 106.0 mmol/L (99-107); ISTAT CREATININE 0.8 mg/dL (0.6-1.1); ISTAT GLUCOSE 101.0 mg/dL (70-104); ISTAT HGB 12.9 g/dl (12.0-16.0); ISTAT Hct 38.0 %PCV (35-45); ISTAT IONIZED CALCIUM 1.23 mmol/L (1.03-1.32); ISTAT K 3.5 mmol/L (3.5-5.1); ISTAT NA 139.0 mmol/L (135-145); ISTAT TOTAL CO2 22.0 mmol/L (24-32); ISTAT eGFR 82.0 ML/MIN; POC BUN/CREATININE RATIO 20.0 (6.6-38.0)
[2025-04-07] MEDS: ringers solution, lacted 1,000 ML IV SCH ×2 (11:25→20:44)
[2025-04-07] MEDS: Cefazolin 3 GM/100ML NS IVPB 100 ML IV ONE (12:45)
[2025-04-07] MEDS ORDERED: BUPIVAcaine/PF 7.5mg/ml (0.75%) 10ml vial ONE (12:58)
[2025-04-07] MEDS ORDERED: rocuronium 10mg/ml inj IV ONE (13:14)
[2025-04-07] MEDS ORDERED: propofol inj 20 ML IV ONE (13:14)
[2025-04-07] MEDS ORDERED: ondansetron/PF 4mg/2ml inj ONE (13:14)
[2025-04-07] MEDS ORDERED: enalaprilat 1.25mg/ml 2ml vial IV PRN (13:55)
[2025-04-07] MEDS ORDERED: meperidine/PF 25mg/ml syringe IV PRN ×3 (13:55)
[2025-04-07] MEDS ORDERED: labetalol 20mg/4ml (5mg/ml) syringe IV PRN (13:55)
--- NOTE | 2025-04-07 13:55 | ANESTHESIA RECORDS ---
Nerve Block Providers to CC ~ Diagnosis: Nerve Block requested by: JAMEL RENDON DPNori Neuraxial/Peripheral Nerve Block requested for Post-operative analgesia by Physician above DIAGNOSIS: Post-operative pain. (Body Area) Shoulder: [ ] Arm: [ ] Hand: [ ] Hip: [ ] Knee: [ ] Ankle: [ Left ] Foot: [ Left ] Leg: [ ] Abdomen: [ ] Other: [ ] Post-operative pain expected to be/is inadequately managed by oral or IV medicines. Regional anesthetic expected to facilitate rehabilitation and/or discharge from facility. Other:[ ] Procedure Performed: Femoral / Saphenous: Left Popliteal Lateral: Left Time out Done?: Yes Time of Time out: 12:35 Procedure Details: PROCEDURE DETAILS: Risks, benefits and alternatives explained Informed consent obtained, and patient wishes to proceed Conscious sedation with indicated monitors Patient positioned, pertinent anatomy defined, sterile technique used Needle used: [ ] 3 1/8 inch Stimuplex Ultra 22ga [x ] 4 inch Stimuplex Ultra 20ga [ ] 6 inch Stimuplex Ultra 20ga [ ] 6 inch, Quikbloc over the needle catheter set 20ga [ ] 4 inch Quikbloc over the needle catheter set 20ga [ ]Other: [ ] Loss of twitch @ [ 0.4 ]mA [x ] Single Injection [ ] Catheter Ultrasound Guidance Used: [x ] Yes [ ] No Attempts:[ once ] Medicines injected: [x ]Clonidine Amt:[ ] [ ]Dexamethasone Amt:[ ] [x ]Ropivacaine Amt:[____0.5% 30 cc ] [x ]Bupivacaine Amt:[___0.35% 15 cc ] [ ]Lidocaine Amt:[ ] [ ]Exparel 1.33%:[ ] [ ]Epinephrine Amt[ ] [ ]Other: [ ] Intermittent aspiration during local anesthetic administration No symptoms of intraneural or intravenous injection Patient tolerated procedure well Comments Left Popliteal fossa Block Pt in Rt lateral position with Left Leg flexed at 90 Degrees. Lateral approa ch. Ultrasound probe placed back of thigh 2 inches above the knee joint. Easy visualization of the Sciatic nerve. 1% xylocaine local anesthetic. Easy visualization of Spreading of local anesthetic anterior and posterior to the Sciatic nerve sub paraneurally inside sciatic nerve sheath. Meaningful conversation t throughout. No Pain or discomfort during injection. Lt Adductor Canal blk Procedure done before surgery under General anesthesia. Pt supine with Lt leg rotated to Lt slightly. Easy visualization of Adductor Canal with ultra sound anterolateral to Femoral artery at the junction of upper and middle third of thigh. Able to see the tip of the needle and injected local anesthetic with the ultrasound SPIKE HANKS MD Apr 07, 2025 13:55
[2025-04-07] MEDS ORDERED: acetaminophen 1,000mg/100ml IV 100 ML IV ONE (16:20)
[2025-04-07] MEDS ORDERED: mag hydrox/Alum hydrox/simeth 30ml oral suspension PO PRN (16:30)
[2025-04-07] MEDS ORDERED: magnesium hydroxide 30ml (MOM) UD suspension PO PRN (16:30)
[2025-04-07] MEDS ORDERED: HYDROmorphone/PF 0.2 MG/ML SYRINGE IV PRN (16:30)
[2025-04-07] MEDS ORDERED: ondansetron/PF 4mg/2ml inj IV PRN (16:30)
[2025-04-07] MEDS ORDERED: HYDROcodone/acetaminophen 5mg/325mg tablet PO PRN (16:30)
[2025-04-07] MEDS: ondansetron/PF 4mg/2ml inj IV PRN (16:56)
[2025-04-07] MEDS: morphine 4 MG/ML inj SYRINge IV PRN (18:22)
[2025-04-07] MEDS: docusate sod 100mg capsule PO SCH (20:00)
[2025-04-07] MEDS: HYDROmorphone inj. 0.5 MG/0.5 ML DISP.SYRIN IV PRN (21:17)
--- NOTE | 2025-04-08 | HISTORY AND PHYSICAL-Residence ---
History & Physical Providers to CC Resident Creating Document: ADEEL GARLAND RES ~ History of Present Illness Primary Medical Doctor: [facility] Reason for Admit\Complaint: Left foot/ankle reconstruction History of Present Illness This is a 34-year-old female patient with a past medical history of bipolar disorder, morbid obesity, severe left ankle/foot osteoarthritis, admitted for hospital observation after uneventful elective left ankle/foot reconstruction by Dr. Pitts. Patient's pain is controlled and she does not have any other complaint at this moment. Previous to the surgery the patient had multiple co ntused traumas and instability of the left foot associated with uncontrolled pain. Allergies: Coded Allergies: nut - unspecified (Verified Allergy, Severe, 10/08/24) dexamethasone (Verified Allergy, Mild, ITCHING, 10/08/24) adhesive tape (Unverified Allergy, Unknown, SPECIFICALLY PAPER TAPE, 10/08/24) clindamycin (Unverified Allergy, Unknown, 10/08/24) dicyclomine (Verified Allergy, Unknown, RASH, N/V, 10/08/24) venom-honey bee (Verified Allergy, Unknown, 10/08/24) lactose (Unverified Adverse Reaction, Unknown, 04/08/25) lactose intolerance per pt Home Medications Home Medications Active Reported Duoneb 2.5-0.5 Mg/3 Ml Soln (Ipratropium/Albuterol Sulfate) 0.5 Mg-3 Mg (2.5 Mg Base)/3 Ml Ampul.neb 1 Vial NEB Q4H PRN Wellbutrin Xl (Bupropion HCl) 300 Mg Tab.er.24h 1 Tab PO QAM Voltaren Arthritis Pain (Diclofenac Sodium) 1 % Gel..gram. 1 Applic TOP QID PRN Tylenol Extra Strength (Acetaminophen) 500 Mg Tablet 1 Tablet PO BID Hydrocodon-Acetaminophen 5-325 (Hydrocodone Bit/Acetaminophen) 5 Mg-325 Mg Tablet 1 Tab PO BID PRN Lyrica (Pregabalin) 200 Mg Capsule 200 Mg PO BID Pantoprazole Sodium 40 Mg Tablet.dr 1 Tab PO BID Clonazepam 0.5 Mg Tablet 1 Tab PO BID PRN Diclofenac Sodium 75 Mg Tablet.dr 1 Tab PO BID Methocarbamol 750 Mg Tablet 1 Tab PO TID Topamax (Topiramate) 100 Mg Tablet 1 Tab PO BID Bupropion Xl (Bupropion HCl) 150 Mg Tab.er.24h 1 Tab PO QAM Past Medical History Past Medical History Bipolar disorder Morbid obesity Past Surgical History Surgical History Comment Hysterectomy Partial thyroidectomy Left shoulder surgery Family History Family History: Patient reports no known family medical history. Past Social History Smoking: Cigarettes (Patient smokes a 1/4 pack of cigarettes since she was 15 year-old ) Alcohol Use: Rarely Drug Use: Marijuana Lives with: Family Lives In: Home Occupation: unemployed ROS Constitutional: Reports: no symptoms reported Eyes: Reports: no symptoms reported ENT: Reports: no symptoms reported Respiratory: Reports: no symptoms reported Cardiovascular: Reports: no symptoms reported Gastrointestinal: Reports: no symptoms reported Genitourinary: Reports: no symptoms reported Female Genitalia: Reports: no reported symptoms Neurological: Reports: no symptoms reported Musculoskeletal: Reports: joint pain, joint swelling, muscle pain Integumentary: Reports: no symptoms reported Allergic/Immunologic: Reports: no symptoms reported Hematologic/Lymphatic: Reports: no symptoms reported Endocrine: Reports: no symptoms reported Psychiatric: Reports: no symptoms reported Exam Vitals: Vital Signs Date Time Temp Pulse Resp B/P (MAP) Pulse Ox O2 Delivery O2 Flow Rate FiO2 04/07/25 21:17 18 04/07/25 18:40 72 110/45 (66) 97 Room Air 0.0 04/07/25 16:30 97.2 General: General: Awake and Alert, no acute distress. Morbid obesity. HEENT: Conjunctiva pink, Sclera clear, Mucus Membranes moist. Neck: Supple without masses and tenderness. Resp: Unlabored. Lungs clear to auscultation bilaterally. Heart: Regular Rate and rhythm, normal S1 and S2 without murmur, rub or gallop. Abdomen: Soft and non tender no organomegaly Extremities: Left lower extremity with clean dressing. No cyanosis,clubbing or edema. Skin: Warm and Dry. Counseling Services Smoking & Tobacco Cessation: 3-10 Minutes Advance Care Planning Advanced Care plannin - 30 Minutes (Patient is full code) Additional Plan Assessment This is a 34-year-old female patient with a past medical history of bipolar disorder, morbid obesity, severe left ankle/foot osteoarthritis, admitted for elective left ankle/foot reconstruction by Dr. Pitts. Plan S/p left foot and ankle reconstruction - severe ankle instability and foot osteoarthritis Arthroscopy with synovectomy; repair of posterior tibial tendon; repair of peroneal tendon; repair of brostom lateral ligament; stabilization of subtalar joint; arthrodesis of 1st and 2nd tarsometatarsal joint with autograft harvest of the calcaneal Ordered physical therapy Pain management Bipolar disorder: No signs of curtis or depression. Continue home medication. History of partial thyroidectomy: Ordered TSH. Code Status: Full code DVT prophylaxis: Lovenox Analgesia/sedation: Morphine/[place] Line/tube: PIV GI prophylaxis: None Nutrition: Regular diet Physical theraphy: Yes Disposition: Continue medical treatment. Discharge plan as per surgeon. Date of Service: Apr 07, 2025 Billing Provider: KATHLEEN SESAY MD, LUCAS, RES Apr 08, 2025 00:00 KATHLEEN SESAY MD Apr 08, 2025 23:49
[2025-04-08 02:00] VITALS: BP 91/46; PULSE 72; RESP 16; TEMP 96.9; O2SAT 97
[2025-04-08 04:57] LABS: MEAN PLATELET VOLUME 10.7 FL (7.4-10.4); RED CELL DISTRIBUTION WIDTH 14.1 % (11.5-14.5)
[2025-04-08] MEDS: HYDROcodone/acetaminophen 10/325mg tab PO PRN (05:07)
[2025-04-08 05:28] LABS: CREATININE 0.73 MG/DL (0.40-0.90); TOTAL CARBON DIOXIDE 24.6 MMOL/L (24-32); eCRCL 86 ML/MIN; eGFR > 90 ML/MIN
[2025-04-08 06:00] VITALS: BP 105/57; PULSE 81; RESP 16; TEMP 97.4; O2SAT 97
--- NOTE | 2025-04-08 07:02 | PROGRESS NOTE ---
Ortho Clinic Progress Note History of Present Illness Allergies: Coded Allergies: nut - unspecified (Verified Allergy, Severe, 10/08/24) dexamethasone (Verified Allergy, Mild, ITCHING, 10/08/24) adhesive tape (Unverified Allergy, Unknown, SPECIFICALLY PAPER TAPE, 10/08/24) clindamycin (Unverified Allergy, Unknown, 10/08/24) dicyclomine (Verified Allergy, Unknown, RASH, N/V, 10/08/24) venom-honey bee (Verified Allergy, Unknown, 10/08/24) Social History Smoking: Cigarettes (Patient smokes a 1/4 pack of cigarettes since she was 15 year-old ) Alcohol Use: Rarely Drug Use: Marijuana Lives with: Family Lives In: Home Occupation: unemployed Pain Pain Present: Yes Non-Verbal Pain Scale Used: 7-10 Severe Verbalized Pain Intensity: 0 Location Location Modifier: Left Pain Location: Ankle Primary Aggravating Factor: Changing Position Subjective Ms. Modi is now POD #1 L ankle arthroscopy with extensive debridement, posterior tibial, peroneus longus/brevis tendon repair, calcaneal autograft harvest, and first and second tarsometatarsal joint arthrodesis. States she is doing otherwise well with pain well controlled. Denies n/v/f/c/cp/sob. Objective Vital Signs Date Time Temp Pulse Resp B/P (MAP) Pulse Ox O2 Delivery O2 Flow Rate FiO2 04/08/25 05:07 16 04/08/25 02:00 96.9 72 91/46 (61) 97 Room Air 04/07/25 18:40 0.0 Alert and Oreinted x4, Vital signs are stable, In no acute distress, Dressing clean and dry, Distal neurovasc intact, Calves: non-tender bilat Lab Results: 04/08/25 0439 04/08/25 0439 Problem\Assessment\Plan Plan: -Stable for discharge from surgical standpoint. -NWB to the LLW in posterior splint. She has all necessary DME and notes she is anticipating making another appointment this morning and wishes to forgo PT. Please keep clean/dry/intact until follow up with office. -Rx have been send from our office for [place], ASA, Keflex, and Vitamin D. -Plan discussed in detail with Dr. Pitts. AG CARRILLO DPM Apr 08, 2025 07:01
[2025-04-08] MEDS: pantoprazole 40mg Tablet.DR PO SCH (08:46)
[2025-04-08] MEDS: BUPROPION HCL 150MG XL 24 HR 150 MG TAB PO SCH (08:47)
[2025-04-08 10:00] VITALS: BP 121/76; PULSE 84; RESP 18; TEMP 96.9; O2SAT 98
[2025-04-08 10:47] VITALS: RESP 18
--- NOTE | 2025-04-08 17:30 | DISCHARGE SUMMARY ---
Discharge Summary Providers to CC ~ Discharge Summary Admission Diagnosis: s/p left foot/ankle reconstruction Hospital Course DATE OF ADMISSION: DATE OF DISCHARGE: Patient's nursing staff nya paged me early this morning " [id number], per pt dr ang stated she can go this am. she would like to be discharged or she said she will go AMA. thanks ilana [id number]" . Patient very eager to go home otherwise wants to leave against medical advice CBC testing done on April 08, 2025 WBC 13.4 hemoglobin 11.1 hematocrit 32.9. CMP done on April 08, 2025 sodium 139 potassium 3.6 normal renal function normal liver enzymes TSH 0.66. Discharge Diagnosis\\Comment: L ankle arthroscopy with extensive debridement, posterior tibial, peroneus longus/brevis tendon repair, calcaneal autograft harvest, and first and second tarsometatarsal joint arthrodesis done on April 07, 2025 history of bipolar d isorder, morbid obesity, severe left ankle/foot osteoarthritis, history of partial thyroidectomy Operations\\Procedures: L ankle arthroscopy with extensive debridement, posterior tibial, peroneus longus/brevis tendon repair, calcaneal autograft harvest, and first and second tarsometatarsal joint arthrodesis done on April 07, 2025 Consultants: Dr. Saldana , Philippe VALENZUELAM . Complications: none Condition on DC: Stable Continued Medications: Acetaminophen (Tylenol Extra Strength) 500 Mg Tablet 1 TABLET PO BID, #10 TABLET Bupropion HCl (Bupropion Xl) 150 Mg Tab.er.24h 1 TAB PO QAM Bupropion HCl (Wellbutrin Xl) 300 Mg Tab.er.24h 1 TAB PO QAM Clonazepam (Clonazepam) 0.5 Mg Tablet 1 TAB PO BID PRN for anxiety Diclofenac Sodium (Diclofenac Sodium) 75 Mg Tablet. 1 TAB PO BID Diclofenac Sodium (Voltaren Arthritis Pain) 1 % Gel..gram. 1 APPLIC TOP QID PRN for pain Hydrocodone Bit/Acetaminophen (Hydrocodon-Acetaminophen 5-325) 5 Mg-325 Mg Tablet 1 TAB PO BID PRN for pain Ipratropium/Albuterol Sulfate (Duoneb 2.5-0.5 Mg/3 Ml Soln) 0.5 Mg-3 Mg (2.5 Mg Base)/3 Ml Ampul.neb 1 VIAL NEB Q4H PRN for SOB or wheezing Methocarbamol (Methocarbamol) 750 Mg Tablet 1 TAB PO TID for PAIN Pantoprazole Sodium (Pantoprazole Sodium) 40 Mg Tablet.dr 1 TAB PO BID Pregabalin (Lyrica) 200 Mg Capsule 200 MG PO BID, CAP Topiramate (Topamax) 100 Mg Tablet 1 TAB PO BID Discharge Summary: This is a 34-year-old female patient with a past medical history of bipolar disorder, morbid obesity, severe left ankle/foot osteoarthritis, admitted for hospital observation after uneventful elective left ankle/foot reconstruction by Dr. Ang. Patient's pain is controlled and she does not have any other complaint at this moment. Previous to the surgery the patient had multiple contused traumas and instability of the left foot associated with uncontrolled pain. During hospitalization patient was treated for S/p left foot and ankle reconstruction - severe ankle instability and foot osteoarthritis Arthroscopy with synovectomy; repair of posterior tibial tendon; repair of peroneal tendon; repair of brostom lateral ligament; stabilization of subtalar joint; arthrodesis of 1st and 2nd tarsometatarsal joint with autograft harvest of the calcaneal Ordered physical therapy Pain management Bipolar disorder: No signs of curtis or depression. Continue home medication. History of partial thyroidectomy: Ordered TSH. Patient's clinical condition was stable throughout the hospitalization she is feeling much better. She has been afebrile and getting discharged home in stable condition. Patient is seen and examined on the day of discharge discharge instructions provided to the patient. Dr. Saldana is okay to discharge the patient today. All questions and concerns answered to the best of my professional medical knowledge. All labs and diagnostic workup discussed at the time of discharge . Patient was evaluated by Podiatry team this a.m. and according to them -Stable for discharge from surgical standpoint. -NWB to the LLW in posterior splint. She has all necessary DME and notes she is anticipating making another appointment this morning and wishes to forgo PT. Please keep clean/dry/intact until follow up with office. -Rx have been send from our office for [place], ASA, Keflex, and Vitamin D. -Plan discussed in detail with Dr. Ang. Please follow-up with Dr. Perez in outpatient setting. Read the side effects of all your medication which likely can contribute to fall. Activity as tolerated. Continue physical therapy in outpatient setting. Further surgical instruction as per podiatry team.repeat CBC, CMP , SED RATE and procalcitonin in 5 days in outpatient setting with PCP/ Dr Saldana . General-patient not in any acute distress, alert awake oriented , obese , age- appropriate HEENT-atraumatic normocephalic, neck supple without elevated JVD, no thyromegaly or carotid bruit. No lymphadenopathy bilaterally. Eyes-no icterus or pallor seen in eyes Chest-clear to auscultation bilaterally, breathing nonlabored no tachypnea, no wheezing, no crepitation, no crackles. Heart-S1-S2 normal, regular heart rate no murmur Abdomen bowel sounds positive on auscultation, soft nondistended nontender no guarding, no rigidity Skin no active skin rash Neurology-grossly intact, nonfocal alert awake oriented Extremity- right lower extremity examination unremarkable, surgical dressing present over left lower extremity able to wiggle her toes. Psychiatry - patient is not confused or agitated cooperated during physical exam ination *Problems/Diagnosis: (1) Secondary osteoarthritis, left ankle and foot Total Time Spent on D/C: > 30 Minutes Date of Service: Apr 08, 2025 Billing Provider: ASYA STAPLES MD Common Visit Codes: 85910-KDO/OBS DISCH DAY >30min ASYA STAPLES MD Apr 08, 2025 17:23
[2025-04-08] MEDS ORDERED: enoxaparin 40mg/0.4ml syringe SQ SCH (20:00)
== END 2025-04-08 12:56 | disposition home or self-care (01) | DRG 313 ==
LOC: EDSTATUS 14:00 → PAS IN 04-07 09:59 → ORTHO 4S 04-07 19:00
PROVIDERS: ADMIT Podiatrist Foot & Ankle Surgery; ATTEND Podiatrist Foot & Ankle Surgery
PROC: 0QBK0ZZ Excision of Left Fibula, Open Approach (ICD-10-PCS; 2025-04-07)
PROC: 0SGJ04Z Fusion of Left Tarsal Joint with Internal Fixation Device, Open Approach (ICD-10-PCS; 2025-04-07)
PROC: 0SGJ07Z Fusion of Left Tarsal Joint with Autologous Tissue Substitute, Open Approach (ICD-10-PCS; 2025-04-07)
PROC: 0SGL07Z Fusion of Left Tarsometatarsal Joint with Autologous Tissue Substitute, Open Approach (ICD-10-PCS; 2025-04-07)
PROC: 0SGL04Z Fusion of Left Tarsometatarsal Joint with Internal Fixation Device, Open Approach (ICD-10-PCS; 2025-04-07)
PROC: 0SBG4ZZ Excision of Left Ankle Joint, Percutaneous Endoscopic Approach (ICD-10-PCS; principal; 2025-04-07 12:32)
DX: M19.072 Primary osteoarthritis, left ankle and foot (principal); Z68.43 Body mass index [BMI] 50.0-59.9, adult; S93.622A Sprain of tarsometatarsal ligament of left foot, initial encounter; E66.01 Morbid (severe) obesity due to excess calories; F17.210 Nicotine dependence, cigarettes, uncomplicated; M25.372 Other instability, left ankle; X58.XXXA Exposure to other specified factors, initial encounter; M25.376 Other instability, unspecified foot; F31.9 Bipolar disorder, unspecified; M25.472 Effusion, left ankle; Z88.1 Allergy status to other antibiotic agents; Z91.030 Bee allergy status; Z88.8 Allergy status to other drugs, medicaments and biological substances; Z91.09 Other allergy status, other than to drugs and biological substances; Y93.89 Activity, other specified; Y92.89 Other specified places as the place of occurrence of the external cause; Y99.8 Other external cause status
CPT/HCPCS: 36415; 73630; 76000; 80047; 80053; 81003; 82948; 84439; 84443; 85008; 85025; 87081; 97116; 97161; A4618; A6222; A6449; A7000; C1713; G0378; J0131; J0690; J0735; J1171; J2250; J2270; J2405; J2704; J2795; J3010; J3490; J7120